=== PATIENT | female | born 1990 | race Caucasian/White ===

== ENCOUNTER → 2017-04-25 15:22 | Outpatient (CLI) | payer MEDICAID ==
[2014-04-06 11:05] VITALS: BMI 19.9
[2017-04-25 16:23] LABS: APPEARANCE HAZY (CLEAR); COLOR YELLOW (YELLOW); LEUKOCYTE ESTERASE 1+ (NEGATIVE)
[2017-04-25 16:24] LABS: BACTERIA MODERATE /hpf (NONE SEEN); BILIRUBIN NEGATIVE (NEGATIVE); GLUCOSE NEGATIVE (NEGATIVE); KETONE NEGATIVE (NEGATIVE); MUCUS >1+ /lpf (NONE SEEN); NITRITE NEGATIVE (NEGATIVE); PROTEIN NEGATIVE (NEGATIVE); RED CELLS - URINE OCC /hpf (0-5); UROBILINOGEN NORMAL (NORMAL); YEAST RARE /hpf (NONE SEEN)
== END | disposition home or self-care (01) ==
LOC: D.LDO 15:22
PROVIDERS: Obstetrics & Gynecology
DX: Z34.90 Encounter for supervision of normal pregnancy, unspecified, unspecified trimester (principal); R05 Cough; R09.89 Other specified symptoms and signs involving the circulatory and respiratory systems

== ENCOUNTER → 2017-06-08 15:00 | Outpatient (CLI) | payer MEDICAID ==
[2014-04-06 11:05] VITALS: BMI 19.9
[~2017-06-08 15:00] MED LIST: HYDROCODON-ACE1 EAC7 PO; IBUPROFEN800 MG PO; PRENATABS RX TA1 TAB PO; SPRINTEC1 TAB PO
[2017-06-08 15:38] LABS: APPEARANCE CLOUDY (CLEAR); BILIRUBIN NEGATIVE (NEGATIVE); COLOR YELLOW (YELLOW); GLUCOSE NEGATIVE (NEGATIVE); KETONE NEGATIVE (NEGATIVE); NITRITE NEGATIVE (NEGATIVE); PROTEIN NEGATIVE (NEGATIVE); SPECIFIC GRAVITY 1.005 (1.005-1.020); UROBILINOGEN NORMAL (NORMAL)
[2017-06-08 15:43] LABS: RED CELLS - URINE 0-5 /hpf (0-5)
[2017-06-08 15:44] LABS: BACTERIA MODERATE /hpf (NONE SEEN)
== END | disposition home or self-care (01) ==
LOC: D.LDO 15:00
PROVIDERS: Obstetrics & Gynecology
DX: O26.893 Other specified pregnancy related conditions, third trimester (principal); Z3A.36 36 weeks gestation of pregnancy; R10.2 Pelvic and perineal pain

== ENCOUNTER 2017-06-27 21:00 | Inpatient (IN) | payer MEDICAID ==
[2017-06-27] MEDS ORDERED: PRENATABS RX TA1 TAB PO (22:13)
[2017-06-27 22:24] VITALS: BP 113/84; BMI 27.1
[2017-06-27 23:51] LABS: HEMATOCRIT 34.9 % (36.0-48.0); HEMOGLOBIN 11.6 g/dL (12-16); MCH 32.9 pg (26.0-34.0); MCHC 33.2 g/dL (31.0-37.0); MCV 98.9 fL (80.0-100.0); MEAN PLATELET VOLUME 10.8 fL (7.4-10.4); RBC 3.53 10x6/uL (4.00-5.40); RDW 13.8 % (11.5-14.5); WBC 17.5 10x3/uL (4.8-10.8)
[2017-06-28 00:14] LABS: APPEARANCE CLEAR (CLEAR); BILIRUBIN NEGATIVE (NEGATIVE); COLOR YELLOW (YELLOW); GLUCOSE NEGATIVE (NEGATIVE); KETONE SMALL mg/dL (NEGATIVE); NITRITE NEGATIVE (NEGATIVE); PROTEIN NEGATIVE (NEGATIVE); SPECIFIC GRAVITY 1.015 (1.005-1.020); UROBILINOGEN NORMAL (NORMAL)
--- NOTE | 2017-06-28 19:00 | NUR ---
REPORT REC'D PT IS UP TO THE SHOWER AT THIS TIME.
--- NOTE | 2017-06-28 19:29 | NUR ---
THIS RN TO PT'S ROOM. PT STILL IN SHOWER. SIG OTHER IN ROOM TO KEEP WATCH OF AND TO ASSIST PT. NO NEEDS VOICED AT THIS TIME. REQUEST MADE FOR PT TO RING CALL LIGHT ONCE SHE IS OUT OF THE SHOWER.
--- NOTE | 2017-06-28 20:00 | NUR ---
PT'S SIG OTHER AT DESK ASKING FOR A MICROWAVE TO REHEAT PT'S DINNER. SIG OTHER DIRECTED TO MICROWAVE. THIS RN TO BEDSIDE. ROOM STRAIGHTENED. TRASH REMOVED. PT INFORMED THAT SHE WILL BE GIVEN THE TIME TO EAT HER DINNER AND THEN THIS RN WILL RETURN TO BEDSIDE FOR SHIFT ASSESSMENT. PT IS AGREEABLE. PT QUESTIONS IF SHE MAY WALK AROUND THE HOSPITAL. PT INFORMED THAT SHE MAY, ONLY SHE MAY NOT GO OUTSIDE OF THE HOSPITAL. PT VERBALIZES UNDERSTANDING AND IS AGREEABLE.
[2017-06-28 20:30] VITALS: BP 121/76
--- NOTE | 2017-06-28 20:30 | NUR ---
THIS RN TO BEDSIDE FOR SHIFT ASSESSMENT. PT CURRENTLY SITTING UP IN BED. FOB HAS RETURNED TO [facility] SO HE AND PT MAY GO FOR A WALK. PAIN ASSESSED. PT DENIES ABD CRAMPING. REPORTS ONLY MILD STINGING WHERE "SKID GIRON ARE NOTED." PT HAS TUCKS AND EPIFOAM IN BR FOR USE AND VERBALIZES UNDERSTANDING OF HOW TO USE. BREATH SOUNDS CL\\=, ABD SOFT, NON DISTENDED. BOWEL SOUNDS PRESENT X 4. FUNDUS FIRM,U/1, PT REPORTS SMALL TO MODERATE LOCHIA. DENIES HAVING ANY BLOOD CLOTS X SEVERAL HOURS.PEDAL PULSES X 2. NO EDEMA NOTED TO LE'S. SALINE LOCK TO RT FOREARM WNL W/OUT REDNESS OR SWELLING.
--- NOTE | 2017-06-28 20:51 | NUR ---
PT AND SIG OTHER AMB OFF UNIT AT THIS TIME.
--- NOTE | 2017-06-28 21:12 | NUR ---
RETURNED TO ROOM AFTER WALKING IN HALLWAY. EXPRESSES THAT VENDING MACHINES ARE NOT FUNCTIONING. INFORMED PT. NOURISHMENTS THAT ARE KEPT ON UNIT. SANDWICH TRAY AND PUDDING SERVED TO PT.
--- NOTE | 2017-06-28 22:30 | NUR ---
ROUNDS MADE FOR PAIN REASSESSMENT. PT RESTING QUIETLY TO RT SIDE FACING AWAY FROM THE DOOR. RESP EVEN AND UNLABORED. PT LEFT UNDISTURBED AT THIS TIME.
--- NOTE | 2017-06-28 22:35 | NUR ---
ROUNDS MADE. PT LYING IN BED TO RT SIDE AWAKE. PAIN AND NEEDS ASSESSED. PT DENIES NEEDS, BUT REPORTS ABD CRAMPING. TORADOL OFFERED. PT ACCEPTS. 10MG TORADOL ADMIN. SEE EMAR.
--- NOTE | 2017-06-29 00:30 | NUR ---
ROUNDS MADE. PT RESTING W/EYES CLOSED IN LOW CLAY'S. RESP EVEN AND UNLBORED. PT LEFT UNDISTURBED AT THIS TIME.
--- NOTE | 2017-06-29 02:35 | NUR ---
ROUNDS MADE. PT REMAINS IN LOW CLAY'S W/EYES CLOSED. RESP EVEN AND UNLABORED. PT LEFT UNDISTURBED AT THIS TIME.
--- NOTE | 2017-06-29 03:10 | NUR ---
DR. MARQUEZ CALLED AND INFORMED OF PT. COMPLAINT OF ABD. CRAMPING AND LAST ADMINISTRATION OF TORADOL. ORDER RECEIVED.
--- NOTE | 2017-06-29 03:10 | NUR ---
PT RINGS CALL LIGHT. SIG OTHER REPORTS PT IS REQUESTING ADDITIONAL PAIN MEDICATION. THIS RN TO PT'S ROOM FOR PAIN ASSESSMENT. PT UP TO BR AT THIS TIME. REPORTS ABD CRAMPING "SO BAD" THAT SHE RATES 10/10. PT INFORMED THAT SHE MAY NOT HAVE TORADOL AGAIN UNTIL 4AM. PT IS UNDERSTANDING, BUT OBVIOUSLY IN PAIN. WARM BLANKETS PROVIDED FOR PT'S ABD. DR MARQUEZ CALLED TO REQUEST ADDITIONAL PAIN MEDICATION PER Giancarlo MONROERN
--- NOTE | 2017-06-29 03:17 | NUR ---
NORCO 5/325MG GIVEN PO. PT INFORMED THAT IF HER PAIN IS NOT RELEIVED IN 45MINS, TORADOL MAY STILL BE ADMINISTERED. PT VEBALIZES UNDERSTANDING. DENIES FURTHER NEEDS AT THIS TIME.
--- NOTE | 2017-06-29 04:00 | NUR ---
ROUNDS MADE FOR PAIN REASSESSMENT. PT LYING AWAKE IN BED. PT REPORTS ABD CRAMPING IS GETTING BETTER. PT STATES "I KNOW THIS MAY SOUND WEIRD, BUT I CAN FEEL BUBBLES IN MY STOMACH MOVING AROUND." THIS RN REPLIES W/DO YOU FEEL LIKE IT IS GAS THAT YOU CAN'T MOVE?" PT ANSWERS W/"MAYBE SO." SIMETHICONE AND SOMETHING WARM TO DRINK SUGGESTED. PT ACCEPTS. HOT TEA SERVED AND PT INFORMED THAT PROFESSOR OF ENVIRONMENTAL ENGINEERING WILL HAVE TO BRING THE SIMETHICONE AND ONCE SHE HAS, ITWILL BE BROUGHT TO HER. PT IS AGREEABLE. NO FURTHER NEEDS VOICED AT THIS TIME.
--- NOTE | 2017-06-29 05:05 | NUR ---
SIMETHICONE RECEIVED FROM METAL BUILDING ASSEMBLER. 80MG PO ADMINISTERED. PT REPORTS HOT TEA IS HELPING HER ABD DISCOMFORT. REQUEST ANOTHER CUP OF HOT TEA.
--- NOTE | 2017-06-29 05:30 | NUR ---
2ND CUP OF HOT TEA SERVED. PT CURRENTLY HOLDING INFANT TENDERLY. DENIES FURTHER NEEDS AT THIS TIME.
--- NOTE | 2017-06-29 06:02 | NUR ---
PT AND SIG OTHER AMBULATORY OFF UNIT.
--- NOTE | 2017-06-29 06:15 | NUR ---
PT AND SIG OTHER RETURN AMBULATORY TO L&D AND TO PT'S ROOM.
[2017-06-29 07:09] VITALS: BP 118/78
--- NOTE | 2017-06-29 07:09 | NUR ---
ASSUMED CARE OF THIS PATIENT. SITTING UP IN BED HOLDING INFANT IN ARMS. FOB IN ROOM. ASSESSMENT COMPLETED. DENIES PAIN A THIS TIME. WRITTEN INFORMATION GIVEN ON TDAP, MMR, AND FLU VACCINE. BOTTLEFEEDING, RH POSITIVE, RUBELLA EQUIVICAL. NO REQUESTS AT THIS TIME. WAITING ON BREAKFAST. DISCUSSED ADDITIONAL MEASURES FOR RELIEF OF GAS AND PROMOTION OF BM. VERBALIZED UNDERSTANDING. TO CALL IF ANYTHING IS NEEDED.
[2017-06-29 07:21] LABS: RAPID PLASMA REAGIN Non Reactive (Non Reactive)
--- NOTE | 2017-06-29 07:41 | NUR ---
AFTER REVIEWING PT INFORMATION ON VACCINATIONS AND ASKING QUESTIONS. DESIRES TDAP AND MMR PRIOR TO DC. DECLINES FLU VACCINE. WILL GIVE PRIOR TO DC.
[2017-06-29 07:54] LABS: BASOPHILS 0.2 % (0-2); EOSINOPHILS 0.7 % (0-7); HEMATOCRIT 32.6 % (36.0-48.0); HEMOGLOBIN 10.8 g/dL (12-16); IMMATURE GRANULOCYTES 0.8 % (0-5); LYMPHOCYTES 23.1 % (15-50); MCH 32.6 pg (26.0-34.0); MCHC 33.1 g/dL (31.0-37.0); MCV 98.5 fL (80.0-100.0); MEAN PLATELET VOLUME 9.9 fL (7.4-10.4); NEUTROPHILS 68.2 % (40-80); PLATELET COUNT 190 10x3/uL (130-400); RBC 3.31 10x6/uL (4.00-5.40); RDW 13.8 % (11.5-14.5); WBC 12.6 10x3/uL (4.8-10.8)
--- NOTE | 2017-06-29 08:24 | NUR ---
SIITING UP IN BED REQUESTED SALINE LOCK BE REMOVED. CBC RESULTS ARE BACK. SALINE LOCK REMOVED WITH TIP INTACT. PRESSURE GUAZE APPLIED. ANTICIPATE DC HOME TODAY. AWAITING MD ARRIVAL FOR DISPOSITION. NO REQUESTS AT THIS TIME. TO CALL IF ANYTHING IS NEEDED.
--- NOTE | 2017-06-29 09:30 | NUR ---
DR MARQUEZ VISITED.
--- NOTE | 2017-06-29 10:07 | NUR ---
TDAP GIVEN IM IN RIGHT DELTOID WITHOUT DIFFICULTY. READY TO GO HOME.
--- NOTE | 2017-06-29 10:15 | NUR ---
MMR GIVEN SQ IN POST LEFT UPPER ARM. WAITING ON DC ORDER FROM MD AND DISCHARGE HOME.
[2017-06-29] MEDS ORDERED: SPRINTEC1 TAB PO (10:46)
[2017-06-29] MEDS ORDERED: HYDROCODON-ACE1 EAC7 PO (10:46)
[2017-06-29] MEDS ORDERED: IBUPROFEN800 MG PO (10:47)
--- NOTE | 2017-06-29 11:16 | NUR ---
VERBAL AND WRITTEN DC INSTRUCTIONS COMPLETED TO INCLUDE ROUTINE PP CARE, PP DEPRESSION, S&S INFECTION, MEDICATION ADMINISTRATION- TO START OCP ON SATURDAY, CAR SAFETY, COMMUNITY RESOURCES, BOTTLE FEEDING, BREASTCARE, FOLLOW-UP. VERBALIZED UNDERSTANDING. WILL DC TO CAR VIA WC WHEN DC'D HOME.
--- NOTE | 2017-06-29 13:00 | NUR ---
DC'D TO CAR VIA WHEELCHAIR. IN CARSEAT. FOB DRIVING. ALL BELONGINGS REMOVED FROM ROOM. PRESCRIPTIONS AND DISCHARGE INSTRUCTIONS WITH BELONGINGS.
--- NOTE | 2017-09-11 06:56 | DS ---
PATIENT:SAMUEL LOPEZ :89 MEDICAL RECORD: [id number] DISCHARGE SUMMARY ADMISSION DATE: 06/27/17 DISCHARGE DATE: 06/29/17 DATE OF ADMISSION: 06/27/2017 DATE OF DISCHARGE: 06/29/2017 ADMISSION DIAGNOSIS: Active labor. DISCHARGE DIAGNOSES: 1. Mother delivered at term. 2. Shoulder dystocia. PROCEDURE: Vaginal delivery. ATTENDING: Bryan Marquez MD HISTORY OF PRESENT ILLNESS: See the H&P in the chart. SUMMARY OF HOSPITALIZATION: The patient labored and delivered with shoulder dystocia. At the time of discharge, the patient is doing well. The patient reports [id number] lochia and adequate pain control. The patient is discharged home to be followed up at [facility] with standard precautions. TRANSINT:[id number] Voice Confirmation ID: [id number] DOCUMENT ID: [id number] BRYAN MARQUEZ MD at [id number] CC: [id number] DICTATION DATE: 09/06/17 0841 CROZE CUTTER HELPER: 09/06/17 1348 DIS IN 06/29/17 [facility] [address] [place] [address]
== END 2017-06-29 13:00 | disposition home or self-care (01) | DRG 775 ==
LOC: D.LD 21:00
PROVIDERS: ADMIT Obstetrics & Gynecology
PROC: 10E0XZZ Delivery of Products of Conception, External Approach (ICD-10-PCS; principal; 2017-06-28)
PROC: 3E0P3VZ Introduction of Hormone into Female Reproductive, Percutaneous Approach (ICD-10-PCS; 2017-06-28)
PROC: 10907ZC Drainage of Amniotic Fluid, Therapeutic from Products of Conception, Via Natural or Artificial Opening (ICD-10-PCS; 2017-06-28)
DX: O66.0 Obstructed labor due to shoulder dystocia (principal); O99.334 Smoking (tobacco) complicating childbirth; O69.81X0 Labor and delivery complicated by cord around neck, without compression, not applicable or unspecified; Z3A.39 39 weeks gestation of pregnancy; Z37.0 Single live birth